=== PATIENT | female | born 1985 | race Caucasian/White ===

== ENCOUNTER 2021-04-26 11:40 | Emergency (ER) | payer MEDICAID, OTHER ==
[~2021-04-26] VITALS: Ht 160 cm; Wt 98.0 kg
[2021-04-26 12:25] LABS: BASOPHILS % 0.5 % (0.0-2.0); EOSINOPHILS % 1.6 % (0.0-5.0); HEMATOCRIT. 37.5 % (36.0-48.0); LYMPHOCYTES % 20.9 % (20.0-50.0); MEAN CORPUSCULAR HEMOGLOBIN 29.2 pg (28.0-32.0); MEAN CORPUSCULAR VOLUME 83.8 fL (81.0-99.0); MEAN PLATELET VOLUME 10.5 fl (7.4-10.4); MONOCYTES % 7.6 % (2.0-8.0); NEUTROPHILS % 69.4 % (40.0-76.0); PLATELET 238 x1000/uL (130-400); RED BLOOD CELL COUNT 4.47 mill/uL (4.2-5.4); RED CELL DISTRIBUTION WIDTH 13.5 % (11.6-14.6)
[2021-04-26 12:32] LABS: CHLORIDE 109 mEq/L (98-107)
[2021-04-26 13:26] LABS: CLARITY URINE CLEAR (CLEAR); COLOR URINE YELLOW (YELLOW); KETONES URINE NEGATIVE (NEGATIVE); LEUKOCYTE ESTERASE URINE 2+ (NEGATIVE); NITRITE URINE NEGATIVE (NEGATIVE); OCCULT BLOOD URINE TRACE (NEGATIVE); PROTEIN URINE NEGATIVE (NEGATIVE); SPECIFIC GRAVITY URINE 1.023 (1.005-1.030); UROBILINOGEN URINE 0.2 E.U./dL (0.2-1.0)
[2021-04-26] MEDS ORDERED: CEPH250C2 MT (14:26)
[2021-04-26] MEDS ORDERED: KETOROLAC 30MG/ML VIAL IM NR (14:45)
[2021-04-26 14:48] VITALS: BP 119/60
== END 2021-04-26 14:51 | disposition home or self-care (01) ==
LOC: ER 11:40
DX: R51.9 Headache, unspecified (principal); R20.0 Anesthesia of skin; N39.0 Urinary tract infection, site not specified
CPT/HCPCS: 36415; 70551; 80053; 81003; 81025; 85025; 96372; 99283; J1885